=== PATIENT | female | born 1950 | race Caucasian/White ===

== ENCOUNTER 2022-05-31 11:44 | Inpatient (IN) | payer MEDICARE ==
[~2022-05-31] VITALS: Ht 162.5 cm; Wt 63.5 kg
[2022-05-31] MEDS ORDERED: METFORMIN HYDR750 MG PO (14:33)
[2022-05-31] MEDS ORDERED: METOPROLOL SUCC50 M1 PO (14:41)
[2022-05-31] MEDS ORDERED: LISINOPRIL20 MG PO (14:43)
[2022-05-31] MEDS ORDERED: CRESTOR40 M1 PO (14:45)
[2022-05-31] MEDS ORDERED: MULTIVITAMINS1 EAC6 PO (14:49)
[2022-05-31] MEDS ORDERED: CYPROHEPTADINE H4 M1 PO (14:58)
[2022-05-31] MEDS ORDERED: LANTUS SOL100 UNIT/1 SC (15:01)
[2022-05-31] MEDS ORDERED: AMLODIPINE BESYL5 MG PO (15:04)
[2022-05-31] MEDS ORDERED: Synthroid,Levo25 MCG PO (15:05)
[2022-05-31] MEDS ORDERED: EXELON1 EAC1 TD (15:08)
[2022-05-31] MEDS ORDERED: NAMENDA10 MG PO (15:09)
[2022-05-31] MEDS ORDERED: REMERON SOLTAB15 MG PO ×2 (15:10→17:04)
[2022-05-31] MEDS ORDERED: DEPAKOTE125 MG PO (15:11)
[2022-05-31] MEDS ORDERED: LAMICTAL100 MG PO (15:16)
[2022-05-31] MEDS ORDERED: VITAMIN D210 MCG PO (15:37)
[2022-05-31] MEDS ORDERED: VISTARIL50 MG PO (16:24)
[2022-05-31] MEDS ORDERED: VISTARIL50 MG IM (16:26)
[2022-05-31] MEDS ORDERED: GEODON20 MG/1 ML IM (16:36)
[2022-05-31] MEDS ORDERED: VISTARIL25 MG PO (17:19)
[2022-05-31] MEDS ORDERED: MAPAP EXTRA ST500 MG PO (17:21)
[2022-05-31] MEDS ORDERED: DULCOLAX10 M1 R (17:23)
[2022-05-31] MEDS ORDERED: MILK OF MA400 MG/51 PO (17:24)
[2022-06-04 14:12] VITALS: BP 127/89
[2022-06-04] MEDS ORDERED: LEXAPRO10 MG PO (14:30)
[2022-06-04] MEDS ORDERED: MELATONIN3 MG PO (14:34)
[2022-06-04] MEDS ORDERED: IMODIUM A-D2 M2 PO (14:34)
[2022-06-04] MEDS ORDERED: SEROQUEL25 MG PO (14:38)
[2022-06-04 19:19] LABS: BILIRUBIN Negative (Negative); BLOOD 2+ (Negative); CLARITY Clear (Clear); COLOR Orange (Yellow); GLUCOSE Trace (Negative); KETONE Trace (Negative); LEUKO ESTERASE 1+ (Negative); NITRITE Negative (Negative); PH 6.5 (4.5-8.0); SPECIFIC GRAVITY 1.015 (1.001-1.030)
[2022-06-04 19:30] LABS: RBC TNTC rbc/hpf (0-2)
[2022-06-04 19:31] LABS: BACTERIA 2+; HYALINE CAST 0-2
[2022-06-04 20:00] VITALS: BP 113/60
[2022-06-05 06:20] LABS: BASO # 0.1 10*3/uL (0.0-0.1); BASO % 0.9 % (0.0-1.0); EOS % 0.7 % (1.0-4.0); HEMATOCRIT 31.6 % (37.0-47.0); LYMPH # 2.8 10*3/uL (1.3-4.4); LYMPH % 49.2 % (27.0-41.0); MEAN CELL VOLUME 91.1 fl (81.0-99.0); MEAN CORPUSCULAR HGB 30.8 pg (27.0-31.0); MEAN CORPUSCULAR HGB CONC 33.9 g/dl (33.0-37.0); MEAN PLATELET VOLUME 10.6 fl (9.6-12.3); MONO # 0.5 10*3/uL (0.1-1.0); MONO % 8.2 % (3.0-9.0); NEUT # 2.3 10*3/uL (2.3-7.9); NEUT % 40.5 % (47.0-73.0); PLATELET COUNT AUTOMATED 163 10*3/uL (130-400); RED BLOOD COUNT 3.47 10*6/uL (4.10-5.10); RED CELL DISTRI WIDTH 13.7 % (0-14.5); WHITE BLOOD COUNT 5.7 10*3/uL (4.8-10.8)
[2022-06-05 06:50] LABS: BUN 17 mg/dl (7-24); CHLORIDE 112 mmol/L (98-107); CHOLESTEROL 110 mg/dL (<200); CREATININE 0.97 mg/dL (0.55-1.02); POTASSIUM 3.4 mmol/L (3.5-5.1); SGOT/AST 29 IU/L (3-35); SGPT/ALT 37 U/L (12-78); SODIUM 143 mmol/L (136-145)
[2022-06-05 07:04] LABS: ALKALINE PHOSPHATASE 49 U/L (45-117); LDL CHOLESTEROL 46 mg/dL (9-159); TRIGLYCERIDES 113 mg/dl (<150)
[2022-06-05 07:50] VITALS: BP 148/67
[2022-06-05 08:08] LABS: VITAMIN D, 25-HYDROXY 41.5 ng/mL (30-100)
[2022-06-05 20:00] VITALS: BP 130/78
[2022-06-06 07:49] VITALS: BP 144/69
[2022-06-06 11:44] LABS: BASO % 0.7 % (0.0-1.0); EOS % 0.5 % (1.0-4.0); HEMATOCRIT 34.9 % (37.0-47.0); LYMPH # 1.5 10*3/uL (1.3-4.4); LYMPH % 24.5 % (27.0-41.0); MEAN CELL VOLUME 90.4 fl (81.0-99.0); MEAN CORPUSCULAR HGB 30.6 pg (27.0-31.0); MEAN CORPUSCULAR HGB CONC 33.8 g/dl (33.0-37.0); MEAN PLATELET VOLUME 10.4 fl (9.6-12.3); MONO # 0.4 10*3/uL (0.1-1.0); MONO % 6.2 % (3.0-9.0); NEUT # 4.1 10*3/uL (2.3-7.9); NEUT % 67.6 % (47.0-73.0); PLATELET COUNT AUTOMATED 175 10*3/uL (130-400); RED BLOOD COUNT 3.86 10*6/uL (4.10-5.10); RED CELL DISTRI WIDTH 14.4 % (0-14.5); WHITE BLOOD COUNT 6.1 10*3/uL (4.8-10.8)
[2022-06-06 12:31] LABS: BUN 12 mg/dl (7-24); CHLORIDE 113 mmol/L (98-107); POTASSIUM 4.1 mmol/L (3.5-5.1); SODIUM 146 mmol/L (136-145)
[2022-06-06 20:00] VITALS: BP 109/55
[2022-06-07 07:39] VITALS: BP 113/67
[2022-06-07 20:00] VITALS: BP 123/60
[2022-06-08 07:38] VITALS: BP 155/79
[2022-06-08 20:00] VITALS: BP 102/70
[2022-06-09 07:18] VITALS: BP 158/80
[2022-06-09 20:00] VITALS: BP 100/60
[2022-06-10 07:54] VITALS: BP 154/54
[2022-06-10 14:52] LABS: BASO # 0.1 10*3/uL (0.0-0.1); EOS # 0.1 10*3/uL (0.0-0.4); HEMATOCRIT 35.3 % (37.0-47.0); LYMPH # 1.9 10*3/uL (1.3-4.4); MEAN CELL VOLUME 94.4 fl (81.0-99.0); MEAN CORPUSCULAR HGB CONC 32.9 g/dl (33.0-37.0); MEAN PLATELET VOLUME 10.7 fl (9.6-12.3); MONO # 0.5 10*3/uL (0.1-1.0); MONO % 7.7 % (3.0-9.0); NEUT # 3.3 10*3/uL (2.3-7.9); PLATELET COUNT AUTOMATED 216 10*3/uL (130-400); RED BLOOD COUNT 3.74 10*6/uL (4.10-5.10); RED CELL DISTRI WIDTH 14.8 % (0-14.5); WHITE BLOOD COUNT 5.9 10*3/uL (4.8-10.8)
[2022-06-10 15:15] LABS: BUN 8 mg/dl (7-24); CHLORIDE 112 mmol/L (98-107); CREATININE 1.01 mg/dL (0.55-1.02); POTASSIUM 3.8 mmol/L (3.5-5.1); SGOT/AST 47 IU/L (3-35); SGPT/ALT 95 U/L (12-78); SODIUM 144 mmol/L (136-145); TOTAL PROTEIN 5.6 gm/dL (6.4-8.2)
[2022-06-10 15:16] LABS: ALKALINE PHOSPHATASE 83 U/L (45-117)
[2022-06-10 20:00] VITALS: BP 115/67
[2022-06-11 09:00] VITALS: BP 130/63
[2022-06-11 20:00] VITALS: BP 108/51
[2022-06-12 07:25] VITALS: BP 119/69
[2022-06-12 20:00] VITALS: BP 150/48
[2022-06-13 08:00] VITALS: BP 155/69
[2022-06-13 19:34] VITALS: BP 125/56
[2022-06-14 08:00] VITALS: BP 138/74
[2022-06-14 20:00] VITALS: BP 128/69
[2022-06-15 08:00] VITALS: BP 170/90
[2022-06-15 09:16] LABS: BUN 12 mg/dl (7-24); CHLORIDE 112 mmol/L (98-107); CREATININE 0.86 mg/dL (0.55-1.02); POTASSIUM 3.7 mmol/L (3.5-5.1); SODIUM 144 mmol/L (136-145)
[2022-06-15 10:18] LABS: BILIRUBIN Negative (Negative); BLOOD 2+ (Negative); CLARITY Clear (Clear); COLOR Yellow (Yellow); GLUCOSE 2+ (Negative); KETONE Negative (Negative); LEUKO ESTERASE Trace (Negative); NITRITE Negative (Negative); PH 5.5 (4.5-8.0); SPECIFIC GRAVITY 1.015 (1.001-1.030)
[2022-06-15 10:32] LABS: BACTERIA 1+; RBC 21-30 rbc/hpf (0-2)
[2022-06-15 14:10] VITALS: BP 138/57
[2022-06-15 20:00] VITALS: BP 140/84
[2022-06-16 08:00] VITALS: BP 123/64
[2022-06-16 20:00] VITALS: BP 116/58
[2022-06-17 07:01] VITALS: BP 152/89
[2022-06-17 20:00] VITALS: BP 106/64
[2022-06-18 07:04] VITALS: BP 152/74
[2022-06-18 18:36] VITALS: BP 124/79
[2022-06-19 08:00] VITALS: BP 152/61
[2022-06-19 20:00] VITALS: BP 130/66
[2022-06-20 07:01] VITALS: BP 130/64
[2022-06-20 20:00] VITALS: BP 117/55
[2022-06-21 08:00] VITALS: BP 126/84
[2022-06-21 20:00] VITALS: BP 111/54
[2022-06-22 07:41] VITALS: BP 148/92
[2022-06-22 10:43] LABS: BASO # 0.1 10*3/uL (0.0-0.1); BASO % 1.5 % (0.0-1.0); EOS # 0.2 10*3/uL (0.0-0.4); EOS % 2.5 % (1.0-4.0); HEMATOCRIT 30.6 % (37.0-47.0); LYMPH # 2.9 10*3/uL (1.3-4.4); LYMPH % 47.1 % (27.0-41.0); MEAN CELL VOLUME 96.8 fl (81.0-99.0); MEAN PLATELET VOLUME 9.9 fl (9.6-12.3); MONO # 0.6 10*3/uL (0.1-1.0); MONO % 9.7 % (3.0-9.0); NEUT # 2.3 10*3/uL (2.3-7.9); NEUT % 38.5 % (47.0-73.0); PLATELET COUNT AUTOMATED 295 10*3/uL (130-400); RED BLOOD COUNT 3.16 10*6/uL (4.10-5.10); RED CELL DISTRI WIDTH 14.1 % (0-14.5); WHITE BLOOD COUNT 6.1 10*3/uL (4.8-10.8)
[2022-06-22 10:58] LABS: ALKALINE PHOSPHATASE 160 U/L (45-117); BUN 18 mg/dl (7-24); CHLORIDE 110 mmol/L (98-107); CREATININE 0.87 mg/dL (0.55-1.02); POTASSIUM 4.8 mmol/L (3.5-5.1); SGOT/AST 67 IU/L (3-35); SGPT/ALT 234 U/L (12-78); SODIUM 143 mmol/L (136-145); TOTAL PROTEIN 5.7 gm/dL (6.4-8.2)
[2022-06-22 20:00] VITALS: BP 109/57
[2022-06-23 06:23] LABS: ALKALINE PHOSPHATASE 181 U/L (45-117); SGOT/AST 55 IU/L (3-35); SGPT/ALT 202 U/L (12-78)
[2022-06-23 07:57] VITALS: BP 114/60
[2022-06-23] MEDS ORDERED: ZINC SULFATE50 MG PO (09:24)
[2022-06-23] MEDS ORDERED: DRONABINOL2.5 MG PO (09:24)
[2022-06-23] MEDS ORDERED: MIRTAZAPINE15 M1 PO (09:24)
[2022-06-23] MEDS ORDERED: MEMANTINE HCL10 MG PO (09:24)
[2022-06-23] MEDS ORDERED: RIVASTIGMINE1 EAC2 T (09:24)
[2022-06-23] MEDS ORDERED: QUETIAPINE FUMA50 M1 PO (09:24)
[2022-06-23] MEDS ORDERED: QUETIAPINE FUMA25 MG PO (09:24)
[2022-06-23] MEDS ORDERED: CRESTOR40 M1 PO (09:43)
== END 2022-06-23 11:11 | DRG 885 ==
LOC: 3N 11:44
PROVIDERS: Counselor Professional; Registered Nurse; Student in an Organized Health Care Education/Training Program; ADMIT Psychiatry & Neurology Psychiatry; ATTEND Psychiatry & Neurology Psychiatry
PROC: 0HBRXZZ Excision of Toe Nail, External Approach (ICD-10-PCS; principal; 2022-06-15)
PROC: 0HBRXZZ Excision of Toe Nail, External Approach (ICD-10-PCS; 2022-06-15)
PROC: 0HBRXZZ Excision of Toe Nail, External Approach (ICD-10-PCS; 2022-06-15)
PROC: 0HBRXZZ Excision of Toe Nail, External Approach (ICD-10-PCS; 2022-06-15)
PROC: 0HBRXZZ Excision of Toe Nail, External Approach (ICD-10-PCS; 2022-06-15)
PROC: 0HBRXZZ Excision of Toe Nail, External Approach (ICD-10-PCS; 2022-06-15)
PROC: 0HBRXZZ Excision of Toe Nail, External Approach (ICD-10-PCS; 2022-06-15)
PROC: 0HBRXZZ Excision of Toe Nail, External Approach (ICD-10-PCS; 2022-06-15)
PROC: 0HBRXZZ Excision of Toe Nail, External Approach (ICD-10-PCS; 2022-06-15)
PROC: 0HBRXZZ Excision of Toe Nail, External Approach (ICD-10-PCS; 2022-06-15)
DX: F33.3 Major depressive disorder, recurrent, severe with psychotic symptoms (principal); E43 Unspecified severe protein-calorie malnutrition; F63.81 Intermittent explosive disorder; E11.65 Type 2 diabetes mellitus with hyperglycemia; F02.81 Dementia in other diseases classified elsewhere, unspecified severity, with behavioral disturbance; N39.0 Urinary tract infection, site not specified; Z20.822 Contact with and (suspected) exposure to COVID-19; G30.9 Alzheimer's disease, unspecified; I10 Essential (primary) hypertension; G47.33 Obstructive sleep apnea (adult) (pediatric); D64.9 Anemia, unspecified; B35.1 Tinea unguium; E87.6 Hypokalemia; Z79.899 Other long term (current) drug therapy; Z68.24 Body mass index [BMI] 24.0-24.9, adult